=== PATIENT | male | born 1960 | race Caucasian/White ===

== ENCOUNTER 2017-10-25 08:39 | Day surgery (SDC) | payer OTHER ==
[~2017-10-25] VITALS: Ht 177.8 cm; Wt 81.6 kg
[2017-10-25] VITALS (18 sets, daily range): BP systolic 120–151; BP diastolic 70–88
[2017-10-25] MEDS ORDERED: LR 1000ml ONE (08:40)
[2017-10-25] MEDS ORDERED: Cefepime 1gm vial ONE (08:40)
[2017-10-25] MEDS ORDERED: Midazolam 2mg/2ml Inj ONE (08:40)
[2017-10-25] MEDS ORDERED: fentaNYL 100 mcg/2 mL IV ONE (08:40)
[2017-10-25] MEDS ORDERED: Propofol 200mg/20ml IV ONE (08:40)
[2017-10-25] MEDS ORDERED: NS Irrig 4000ml IRRIG ONE (08:40)
[2017-10-25] MEDS ORDERED: SIMVASTATIN10 MG ORAL (09:15)
--- NOTE | 2017-10-25 11:08 | Pre-Procedure Note/Attestation ---
Pre-Procedure Note/Attestation Complete Prior to Procedure Procedure Narrative: left shoulder arthroscopy, subacromial decompression, distal clavicle excision, rotator cuff debridement vs repair and related procedures Attestation I attest that I discussed the nature of the procedure; its benefits; risks and complications; and alternatives (and the risks and benefits of such alternatives ), prior to the procedure, with the patient (or the patient's legal door to door sales representative). I attest that, if there was a reasonable possibility of needing a blood transfusion, the patient (or the patient's legal door to door sales representative) was given the [facility] standardized written summary, pursuant to the [employer] Blood Safety Act ([place] Health and Safety Code # 1645, as amended). I attest that I re-evaluated the patient just prior to the surgery and that there has been no change in the patient's H&P, except as documented below: JONATHAN SOTO Oct 25, 2017 11:08
[2017-10-25] MEDS ORDERED: Ropivacaine 5mg/ml Vial 30ml INJ ONE (11:20)
[2017-10-25] MEDS ORDERED: EPINEPHrine 1mg/1ml Amp ONE (11:20)
[2017-10-25] MEDS ORDERED: Ropivacaine 2mg/ml Amp 20ml INJ ONE (11:20)
[2017-10-25] MEDS ORDERED: Bupivacaine 0.25% Inj 30ml INJ ONE (11:20)
[2017-10-25] MEDS ORDERED: LR 1000ml 1,000 ML IVLG SCH (12:33)
--- NOTE | 2017-10-25 12:39 | Anethesia Preoperative Eval ---
Anesthesia Pre-op PMH/ROS General Date of Evaluation: Oct 25, 2017 Time of Evaluation: 11:28 Anesthesiologist: Basilio ASA Score: ASA 3 Mallampati Score Class I : Soft palate, uvula, fauces, pillars visible Class II: Soft palate, uvula, fauces visible Class III: Soft palate, base of uvula visible Class IV: Only hard plate visible Mallampati Classification: Class II Surgeon: Angie Diagnosis: Left shoulder pain Surgical Procedure: Left shoulder scope ,SAD Family History: no anesthesia problems Allergies: Coded Allergies: No Known Allergies (Unverified , 10/25/17) Medications: see eMAR Past Medical History Cardiovascular: Reports: CAD - S/p IN and stents Pulmonary: Denies: asthma, COPD, JOSEPH, other Gastrointestinal/Genitourinary: Denies: GERD, CRI, ESRD, other Neurologic/Psychiatric: Denies: dementia, CVA, depression/anxiety, TIA, other Endocrine: Denies: DM, hypothyroidism, steroids, other HEENT: Denies: cataract (L), cataract (R), glaucoma, ALEKNAGIK (L), ALEKNAGIK (R), other Hematology/Immune: Denies: anemia, DVT, bleeding disorder, other Musculoskeletal/Integumentary: Denies: OA, RA, DJD, DDD, edema, other PMH Narrative: CAD (s/p stents and IN) PSxH Narrative: Coronary stents, left shoulder surgery Anesthesia Pre-op Phys. Exam Physician Exam Last Vital Signs Date Time Temp Pulse Resp B/P (MAP) Pulse Ox O2 Delivery O2 Flow Rate FiO2 10/25/17 09:19 97.1 50 20 151/88 95 Room Air Constitutional: NAD Neurologic: CN 2-12 intact Cardiovascular: RRR, no M/R/G Respiratory: CTA Gastrointestinal: S/NT/ND Airway Exam Mallampati Score: Class II MO: full ROM: full Teeth: intact Anesthesia Pre-op A/P Labs WNL Studies Pre-op Studies: EKG - SR. LAHB Risk Assessment & Plan Assessment: Class 3, no contraindication for surgery Plan: GA, LMA, interscalene block for post op pain. Status Change Before Surgery: No Pre-Antibiotics Drug: Ancef Given Within 1 Hr of Incision: Yes Time Given: 12:00 ARINA MORRISON M.D. Oct 25, 2017 12:39
--- NOTE | 2017-10-25 12:40 | Immediate Post-Op Evaluation ---
Immediate Post-Op Evalulation Immediate Post-Op Evalulation Procedure: Left shoulder scope Date of Evaluation: Oct 25, 2017 Time of Evaluation: 13:32 IV Fluids: 950 Blood Pressure Systolic: 127 Blood Pressure Diastolic: 83 Pulse Rate: 71 Respiratory Rate: 15 O2 Sat by Pulse Oximetry: 99 Temperature (Fahrenheit): 97.2 Pain Score (1-10): 0 Nausea: No Vomiting: No Complications No complication Patient Status: reacts, patent, none Hydration Status: adequate Drug: Ancef Given Within 1 Hr of Incision: Yes Time Given: 12:00 ARINA MORRISON M.D. Oct 25, 2017 12:40
[2017-10-25] MEDS ORDERED: LR 1000ml 1,000 ML IV SCH (12:45)
[2017-10-25] MEDS ORDERED: DiphenhydrAMINE 50mg/ml Inj IVP PRN (12:45)
--- NOTE | 2017-10-25 13:27 | 48 Hour Post Anesthesia Eval ---
Post Anesthesia Evaluation Procedure: Left shoulder scope Date of Evaluation: Oct 25, 2017 Time of Evaluation: 14:00 Blood Pressure Systolic: 125 0: 80 Pulse Rate: 71 Respiratory Rate: 16 O2 Sat by Pulse Oximetry: 98 Airway: patent Nausea: No Vomiting: No Pain Intensity: 5 If pain is > 6 Comment: Patient complains of pain despite interscalene block and normal vital signs Hydration Status: adequate Cardiopulmonary Status: Stable Mental Status/LOC: patient returned to baseline Follow-up Care/Observations: As per surgery Post-Anesthesia Complications: No anesthetic complication Follow-up care needed: N/A ARINA MORRISON M.D. Oct 25, 2017 13:27
[2017-10-25] MEDS: Hydromorphone 0.5mg/0.5ml inj IVP PRN ×3 (13:46→14:33)
[2017-10-25] MEDS ORDERED: Ketorolac 30mg Inj IV ONE (15:00)
[2017-10-25] MEDS ORDERED: Ketorolac 30mg Inj IM ONE (15:00)
[2017-10-25] MEDS ORDERED: Meperidine 50mg/ml Inj(FOR RIGORS ONLY) ONE (15:07)
[2017-10-25] MEDS ORDERED: Meperidine 50mg/ml Inj(FOR RIGORS ONLY) IVP ONE (15:15)
--- NOTE | 2017-10-26 07:15 | Operative Note - Dictated ---
DATE OF OPERATION: 10/25/2017 NOTE: POOR AUDIO PREOPERATIVE DIAGNOSIS: Left shoulder partial-thickness tear of the infraspinatus with bursitis and subacromial impingement. POSTOPERATIVE DIAGNOSIS: Left shoulder partial-thickness tear of the infraspinatus with bursitis and subacromial impingement. PROCEDURE PERFORMED: 1. Left shoulder diagnostic arthroscopy. 2. Left shoulder arthroscopic subacromial decompression with release of coracoacromial ligament, subtotal bursectomy, and acromioplasty. 3. Arthroscopic debridement of rotator cuff. 4. Mini Anna procedure with excision of the inferior 30% of the distal aspect of clavicle. 5. Diagnostic bursoscopy. 6. Diagnostic arthroscopy. 7. Ligamentous exam under anesthesia. SURGEON: Vijay Adams M.D. ANESTHESIOLOGIST: Bhanu Dunbar M.D. ANESTHESIA: General endotracheal anesthesia and interscalene block. COMPLICATIONS: None. ANTIBIOTICS: 1 gram of Ancef. INDICATIONS: This is a pleasant gentleman, who failed non-operative treatment and option for above treatment was given. Risks, alternatives, and benefits were discussed with the patient and the patient wished to proceed. GROSS FINDINGS: With the patient under anesthesia, the patient had full range of motion of the shoulder with good stability via arthroscopy. The biceps tendon was normal. The superior labrum was frayed. The posterior labrum and inferior recess was normal. The glenoid cartilage was normal. The rotator cuff, articular surface revealed a partial-thickness tear of the infraspinatus. The humeral head articular surface was normal. The subscapularis tendon was normal. On the bursal surface, the coracoacromial ligament was hypertrophied with nodular subacromial spur on the undersurface of the acromion extending to the AC joint. The bursal surface of the rotator cuff did not show a tear. DESCRIPTION OF PROCEDURE: The patient was brought to the operating room, supine on a stretcher. Appropriate IV lines were placed by the anesthesiologist and 1 gram of Ancef was given. An interscalene block was administered. The patient was induced and intubated without complication. Ligamentous exam under anesthesia was done and showed no instability. The patient was placed into the lateral decubitus position with the left side up. The arm was placed in 30 degrees of forward flexion and 45 degrees of abduction. Axillary roll was placed and all bony prominences were well padded. Arm sleeve was placed around the left arm with 10 pounds of traction. The arm was prepped and draped in usual sterile fashion with alcohol ChloraPrep and iodine draping. Arthroscopy, the joint was entered posteriorly with a blunt-tip obturator and an operating cannula was placed after making a small skin incision. The anterolateral portal was made with the aid of a switching stick. At this point, examination of the glenohumeral joint was done with the above findings. Appropriate photographs were taken. Debridement, at this point, a full radius shaver was inserted and careful debridement of the labrum was done until all three loose tissue was removed. Debridement of the articular surface of the rotator cuff was also done with the shaver until all frayed articular rotator cuff was removed and healthy tissue remained. Investigation revealed no full-thickness component and the partial-thickness tear was approximately 25%. Bursoscopy, the arm was placed into the bursoscopy position and the bursa was entered in the usual fashion and the anterior and posterior portals were established with a full examination of the subacromial space. A lateral portal was established. Decompression, the heat probe and a shaver was used to the lateral portal to skeletonize the undersurface of the acromion removed. The soft tissues are fully released the coracoacromial ligament. A high-speed bur was used through the lateral portal to remove bone from the anterior edge of the acromion and tapered gradually to the posterior edge of the AC joint. Mini Anna, a high-speed bur was used to flatten the undersurface of the distal clavicle removing approximately 30% of the clavicle facet in a gentle taper fashion and some was incorporated with the acromion. At this point, further investigation of the rotator cuff was done. There was no full-thickness component and all loose debris was removed from the subacromial space. The instruments were removed from the shoulder. The portals were closed with 3-0 Vicryl sutures and 5-0 nylon sutures in a horizontal mattress fashion. A sterile dressing tape was placed. The patient was extubated and taken to the recovery room in stable condition. He was found to be neurovascularly intact. Postoperative medications as well as the postoperative appointment and instructions were given to the patient. Vijay Adams M.D. DR: ARACELI JOB#: [id number] CC: MARI
== END 2017-10-25 16:22 | disposition home or self-care (01) ==
LOC: SUR 08:39
DX: M75.42 Impingement syndrome of left shoulder (principal); M75.112 Incomplete rotator cuff tear or rupture of left shoulder, not specified as traumatic; Z79.82 Long term (current) use of aspirin; E78.5 Hyperlipidemia, unspecified; Z86.19 Personal history of other infectious and parasitic diseases; R03.0 Elevated blood-pressure reading, without diagnosis of hypertension; I25.2 Old myocardial infarction; M79.2 Neuralgia and neuritis, unspecified; Z95.5 Presence of coronary angioplasty implant and graft; I25.10 Atherosclerotic heart disease of native coronary artery without angina pectoris
CPT/HCPCS: 29822; 29824; 29826; J0171; J0692; J1170; J2175; J2250; J2405; J2704; J2795; J3010; J3490; J7120; 94003; 94150